=== PATIENT | female | born 1985 | race Caucasian/White ===

== ENCOUNTER 2024-01-01 19:58 | Emergency (ER) | payer OTHER, SELFPAY ==
[2024-01-01 20:00] VITALS: BP 139/93
[2024-01-01] MEDS: MOTRIN 600 MG PO (21:44)
--- NOTE | 2024-01-01 23:23 | ED.MUSCINJ ---
HPI-Injury
General
Chief Complaint: Musculo-Skeletal Complaint
Source: patient
Exam Limitations: none
Time Seen by Provider: 01/01/24 21:06
Nursing documentation reviewed up to this point in time: agreed with
History of Present Illness-Injury
Is this injury a work related problem?: No
Is pt an associate of [facility]?: No
Initial Injury comments:
Jammed finger on ground. Complains of pain and swelling to left 4th finger. Injury occurred just [employer]
Past History
Past History
ED Past Medical History: None and Other
Social History
Tobacco: Non-smoker
Alcohol: None
Family History
Family History: Negative Diabetes
Review of Systems
Review of Systems
Allergies reviewed?: Yes
All Other Systems: ROS reviewed and negative except as documented in HPI and ROS
Constitutional: Reports no symptoms
Musculoskeletal: Reports joint pain (Pain to left 4th finger)
Skin: Reports no symptoms
Neurological: Reports no symptoms
Psychiatric: Reports no symptoms
Musculoskeletal Injury Exam
Musculoskeletal Injury Exam
Left Fourth Finger:
Pain with Movement?: Moderate
Tender to palpation?: Moderate
Soft tissue swelling?: Moderate
External deformity and angulation?: None
Joint effusion?: None
Contusion?: Moderate
Hematoma-local bleeding into tissue?: None
Strain- Sprain- Tear (Connective tissue injury)?: Moderate
Crepitus with movement?: No
Joint instability?: No
Malalignment/deformity?: No
Range of motion: Limited
Distal skin color and temperature: normal-warm & good color
Capillary Refill: normal
Normal distal neurovascular exam?: Yes
Phy Exam
General Physical Exam
General Presentation: well appearing and no apparent distress
General age: appears stated age
General Skin: warm and dry
General Habitus: normal
General Mental: alert
Musculoskeletal Exam
Musculoskeletal Exam: neuro vasc intact
Skin Exam
Skin Exam: normal color, warm/dry and no rash
Psychiatric Exam
Psychiatric Exam: normal mood/affect
Injury Course
Orders/Labs/Results
Orders:
Orders
01/01/24 20:03
CR Finger(s)/thumb Min 2 Vw Lt Urgent
Comment:
Reason For Exam: 4th digit injury/ deformity
01/01/24 21:22
Aluminium Finger Splint Left ONCE
01/01/24 21:41
Ibuprofen [Motrin] 600 mg .ROUTE .STK-MED ONE
01/01/24 21:44
Ibuprofen [Motrin] 600 mg PO NOW STA
*Radiology
Radiology exam reviewed: radiology read reviewed
*Pulse Oximetry
Patient hypoxic: no
*Critical Care Note
Total Time (30-74mins, 75-104mins- exclusive of procedures): Not Applicable
ED Attending Note
-
Portions of this chart may have been created with voice recognition software.� Occasional wrong word or��sound alike� substitutions may have occurred due to the inherent limitations of voice recognition software.
Discharge Plan
Departure
Patient Disposition: Home (Routine Discharge)
Date of Disposition: 01/01/24
Time of Disposition: 21:22
Patient with high blood pressure during this ER visit?: No
Condition: Good
Covid-19: Not Applicable
Discharge Problem:
Finger fracture, left
Instructions: Finger fracture, Using Cold for Pain
Prescriptions:
No Action
PN cmb#95-ferrous fumarate-FA [] 1 EACH tablet
1 ea PO DAILY
acetaminophen 325 MG tablet
650 mg PO Q4HPRN PRN (Reason: mild pain) 0RF
ibuprofen 600 MG tablet
600 mg PO Q4HPRN PRN (Reason: cramps) 0RF
Referrals:
Liu Marques MD [Active] - Call in 1-3 days for appt
Kusum Randolph MD [Family Provider] -
Interventions
Interventions:
*Risk Screen - Suicide Last Done: 01/01/24 21:49
*General Assessment Last Done: 01/01/24 21:49
*Neglect/Abuse Screening Last Done: 01/01/24 21:49
ED- Fall Risk Assessment Last Done: 01/01/24 21:49
*ED COVID-19 Vaccine History Last Done: 01/01/24 21:49
*Nursing Disposition Last Done: 01/01/24 21:49
ED-Musculoskeletal Assessment Last Done: 01/01/24 20:21
Discharge Date and Time
Discharge Date/Time: 01/01/24 21:50
Print Language: OMANI
== END 2024-01-01 21:50 | disposition home or self-care (01) ==
LOC: EMR 19:58
PROVIDERS: EMERGENCY PHYSICIAN Student in an Organized Health Care Education/Training Program; FAMILY PHYSICIAN Family Medicine
DX: S62.605A Fracture of unspecified phalanx of left ring finger, initial encounter for closed fracture (principal); S60.042A Contusion of left ring finger without damage to nail, initial encounter; X58.XXXA Exposure to other specified factors, initial encounter; Y93.66 Activity, soccer
CPT/HCPCS: 99283; 29130; 73140